=== PATIENT | male | born 1955 | race Caucasian/White ===

== ENCOUNTER 2017-03-23 23:27 | Emergency (ER) | payer BC ==
[~2017-03-23] VITALS: Ht 177.8 cm; Wt 134.6 kg
[~2017-03-23 23:27] MED LIST: GABA-113 PO; PRAV20TA PO
[2017-03-23 23:33] VITALS: Ht 177.8 cm; Wt 134.6 kg
--- NOTE | 2017-03-24 00:07 | EMERGENCY ROOM VISIT NOTE ---
History Report prepared by Mary: Pernell Pulido Under the Supervision of: Dr. Cindy Todd D.O. First contact with patient: 23:35 Chief Complaint: KIDNEY STONE Stated Complaint: RT SIDE LOWER BACK PAIN- HX KIDNEY STONES History of Present Illness The patient is a 61 year old male who presents to the Emergency Room with complaints of constant right flank pain that began 3 hours ago. The patient describes the pain as a constant "discomfort, not painful" pain down the back with recent movement to the front. Per patient, he has associated symptoms of vomiting, "hot flashes", and chills. He has not taken his temperature. He denies any change in bowel movement, change in urine, or hematuria. Patient denies pain in the legs and testicles. Pertinent past medical history includes history of kidney stones for 35 years, and state that his current symptoms feel like a kidney stone. Most recent kidney stone passed was small, and occurred several years ago. Patient has passed kidney stones from both kidneys. No family history of kidney stones. Symptoms are improved with increased fluids. Patient had recent blood work done at [facility], in addition to getting a shinGetui shot. Patient adds that he has a history of diabetes and has started exercising for the past 3 weeks to try to get off of Metformin. Source of History: patient Onset: 3 hours ago Position: other (right flank) Timing: constant Associated Symptoms: + chills, + vomiting Note: The patient denies any change in bowel movement, change in urine, or hematuria. He also complains of "hot flashes". Review of Systems See HPI for pertinent positives & negatives. A total of 10 systems reviewed and were otherwise negative. Past Medical & Surgical Medical Problems: (1) Diabetes (2) Kidney stones Family History No pertinent family history stated. Social History Smoking Status: Never Smoker Marital Status: Housing Status: lives with family Occupation Status: employed Current/Historical Medications Scheduled Ondasetron Odt (Zofran Odt), 4 MG SL Q8 Pravastatin (Pravachol ), 20 MG PO DAILY Tamsulosin Hcl (Flomax), 0.4 MG PO DAILY Travoprost (Travatan Z), 1 DROPS OPB HS Scheduled PRN Hydrocodon/Acetaminophen 5MG/300MG (Vicodin (5MG/300MG)), 1 TAB PO Q6H PRN for Pain Allergies Coded Allergies: Aspirin (Verified Adverse Reaction, Mild, UNKNOWN, 03/24/17) Physical Exam Vital Signs Date Time Temp Pulse Resp B/P (MAP) Pulse Ox O2 Delivery O2 Flow Rate FiO2 03/24/17 01:50 70 18 156/83 98 03/24/17 01:10 68 18 156/83 98 Room Air 03/23/17 23:33 36.9 67 18 157/94 96 Room Air Physical Exam GENERAL: alert, well appearing, obese, well nourished, no distress, non-toxic EYE EXAM: normal conjunctiva, PERRL and EOM's grossly intact OROPHARYNX: no exudate, no erythema, lips, buccal mucosa, and tongue normal and mucous membranes are moist NECK: supple, no nuchal rigidity, no adenopathy, non-tender LUNGS: Clear to auscultation. Normal chest wall mechanics HEART: no murmurs, S1 normal and S2 normal ABDOMEN: abdomen soft, non-tender, normo-active bowel sounds, no masses, no rebound or guarding. BACK: Back is symmetrical on inspection and there is no deformity, no midline tenderness, no CVA tenderness. SKIN: no rashes and no bruising UPPER EXTREMITIES: upper extremities are grossly normal. LOWER EXTREMITIES: No pitting edema. NEURO EXAM: Normal sensorium, cranial nerves II-XII grossly intact, normal speech, no gross weakness of arms, no gross weakness of legs. Medical Decision & Procedures ER Provider Diagnostic Interpretation: Radiology results have been interpreted by the radiologist and reviewed by me. US RENAL: Non-obstructing calculi within the right kidney. No hydronephrosis. Left kidney is unremarkable. No Hydronephrosis. Radiologist: Chi Brasher MD Laboratory Results 03/23/17 23:45 Red Blood Count 4.65, Mean Corpuscular Volume 93.1, Mean Corpuscular Hemoglobin 31.6, Mean Corpuscular Hemoglobin Concent 33.9, Mean Platelet Volume 12.2, Neutrophils (%) (Auto) 71.9, Lymphocytes (%) (Auto) 18.5, Monocytes (%) (Auto) 8.0, Eosinophils (%) (Auto) 1.1, Basophils (%) (Auto) 0.2, Neutrophils # (Auto) 7.58, Lymphocytes # (Auto) 1.95, Monocytes # (Auto) 0.84, Eosinophils # (Auto) 0.12, Basophils # (Auto) 0.02 03/23/17 23:45 Test 03/23/17 23:45 White Blood Count 10.54 K/uL (4.8-10.8) Red Blood Count 4.65 M/uL (4.7-6.1) Hemoglobin 14.7 g/dL (14.0-18.0) Hematocrit 43.3 % (42-52) Mean Corpuscular Volume 93.1 fL (80-100) Mean Corpuscular Hemoglobin 31.6 pg (25-34) Mean Corpuscular Hemoglobin Concent 33.9 g/dl (32-36) Platelet Count 167 K/uL (130-400) Mean Platelet Volume 12.2 fL (7.4-10.4) Neutrophils (%) (Auto) 71.9 % Lymphocytes (%) (Auto) 18.5 % Monocytes (%) (Auto) 8.0 % Eosinophils (%) (Auto) 1.1 % Basophils (%) (Auto) 0.2 % Neutrophils # (Auto) 7.58 K/uL (1.4-6.5) Lymphocytes # (Auto) 1.95 K/uL (1.2-3.4) Monocytes # (Auto) 0.84 K/uL (0.11-0.59) Eosinophils # (Auto) 0.12 K/uL (0-0.5) Basophils # (Auto) 0.02 K/uL (0-0.2) RDW Standard Deviation 46.6 fL (36.4-46.3) RDW Coefficient of Variation 13.9 % (11.5-14.5) Immature Granulocyte % (Auto) 0.3 % Immature Granulocyte # (Auto) 0.03 K/uL (0.00-0.02) Urine Color YELLOW Urine Appearance CLEAR (CLEAR) Urine pH 5.0 (4.5-7.5) Urine Specific [place] 1.029 (1.000-1.030) Urine Protein NEG (NEG) Urine Glucose (UA) NEG (NEG) Urine Ketones 1+ (NEG) Urine Occult Blood 3+ (NEG) Urine Nitrite NEG (NEG) Urine Bilirubin NEG (NEG) Urine Urobilinogen NEG (NEG) Urine Leukocyte Esterase NEG (NEG) Urine WBC (Auto) 1-5 /hpf (0-5) Urine RBC (Auto) 5-10 /hpf (0-4) Urine Hyaline Casts (Auto) 1-5 /lpf (0-5) Urine Epithelial Cells (Auto) 5-10 /lpf (0-5) Urine Bacteria (Auto) NEG (NEG) Urine Crystals CALCIUM OXALATE (NONE Anion Gap 9.0 mmol/L (3-11) Est Creatinine Clear Calc Drug Dose 90.4 ml/min Estimated GFR () 75.7 Estimated GFR (Non- 65.3 BUN/Creatinine Ratio 12.8 (10-20) Calcium Level 9.3 mg/dl (8.5-10.1) Total Bilirubin 0.8 mg/dl (0.2-1) Aspartate Amino Transf (AST/SGOT) 40 U/L (15-37) Alanine Aminotransferase (ALT/SGPT) 55 U/L (12-78) Alkaline Phosphatase 55 U/L (45-117) Total Protein 7.4 gm/dl (6.4-8.2) Albumin 3.8 gm/dl (3.4-5.0) Globulin 3.6 gm/dl (2.5-4.0) Albumin/Globulin Ratio 1.1 (0.9-2) Laboratory results per my review. Medications Administered Medications (Trade) Dose Ordered Sig/Paulette Route Start Time Stop Time Status Last Admin Dose Admin Tamsulosin HCl (Flomax Cap) 0.4 mg NOW ONCE PO 03/24/17 00:15 03/24/17 00:16 DC 03/24/17 00:21 0.4 MG Ketorolac Tromethamine (Toradol Inj) 30 mg NOW STAT IV 03/24/17 00:11 03/24/17 00:13 DC 03/24/17 00:20 30 MG Sodium Chloride 1,000 ml @ 999 mls/hr Q1H1M STAT IV 03/24/17 00:11 03/24/17 01:11 DC 03/24/17 00:22 999 MLS/HR Ondansetron HCl (Zofran Inj) 4 mg NOW STAT IV 03/24/17 00:12 03/24/17 00:13 DC 03/24/17 00:20 4 MG Acetaminophen/ Hydrocodone Bitart (Universal 5/325 Tab) 1 tab NOW STAT PO 03/24/17 01:33 03/24/17 01:34 DC 03/24/17 01:45 1 TAB ED Course 2340: The patient was evaluated in room A3. A complete history and physical exam was performed. 0011: Sodium Chloride 1000 ml @ 999 mls/hr IV, Toradol 30mg IV 0012: Zofran Inj 4mg IV 0015: Flomax Cap 0.4mg PO 0119 Upon reevaluation, the patient is feeling better. I discussed the findings and the treatment plan with the patient. He verbalizes agreement and understanding. He was discharged home. 0133: Universal 5/325 Tab PO Medical Decision Differential diagnosis: Etiologies such as renal colic, appendicitis, diverticulitis, mesenteric ischemia, aortic pathology, infections, inflammatory bowel disease, PUD, biliary pathology, UTI, as well as others were entertained. Pt well appearing here, VS stable. Hx of prior stones and similar sx tonight. Renal function normal, no leukocytosis or fever, no evidence of UTI. Pain improved and no recurrent vomiting. Mild hyperglycemia noted. Discussed with pt hydration, meds, f/u with urology, sx to watch/return for, he verbalized understanding and was agreeable with plan. Doubt bacteremia/sepsis, doubt concurrent GI pathology, doubt appy, sbo, perf, colitis. Doubt vascular pathology. Pt comfortable going home and felt improved at [place]. Medication Reconcilliation Current Medication List: was personally reviewed by me Blood Pressure Screening Patient's blood pressure: Elevated blood pressure Blood pressure disposition: Elevated BP felt to be situational Impression Primary Impression: Right flank pain Additional Impressions: Renal colic Hematuria Scribe Attestation The scribe's documentation has been prepared under my direction and personally reviewed by me in its entirety. I confirm that the note above accurately reflects all work, treatment, procedures, and medical decision making performed by me. Departure Information Dispostion Home / Self-Care Prescriptions Tamsulosin Hcl (FLOMAX) 0.4 Mg Cap 0.4 MG PO DAILY, #10 CAP Prov: Cindy Todd, DO 03/24/17 Ondasetron Odt (ZOFRAN ODT) 4 Mg Tab 4 MG SL Q8 for Nausea, #20 TAB Prov: Cindy Todd, DO 03/24/17 Hydrocodon/Acetaminophen 5MG/300MG (VICODIN (5MG/300MG)) 1 Tab Tab 1 TAB PO Q6H Y for Pain, #14 TAB Prov: Perez Cindy S., DO 03/24/17 Referrals Uriel Colin M.D. (PCP) Forms HOME CARE DOCUMENTATION FORM, IMPORTANT VISIT INFORMATION Patient Instructions Kidney Stones - [facility], My [facility] Additional Instructions Please drink plenty of water. Please take the Flomax daily until he passed a kidney stone. You may use the pain and nausea medications as needed. Please: Follow up with your urologist as a precaution. If you develop worsening pain, have recurrent vomiting, develop fevers or chills, or unable to urinate, have markedly elevated blood sugars, or you have any other new concerns, please return the emergency room. Problem Qualifiers Additional Impressions: Hematuria Hematuria type: unspecified type Qualified Codes: R31.9 - Hematuria, unspecified
[2017-03-24] MEDS ORDERED: SODIUM CHLORIDE 0.9% 1000ML 1,000 ML IV STA (00:11)
[2017-03-24] MEDS ORDERED: KETOROLAC TROMETHAMINE 30 MG/ML VIAL IV STA (00:11)
[2017-03-24] MEDS ORDERED: ONDANSETRON INJ 2 MG/ML 2 ML VIAL IV STA (00:12)
[2017-03-24] MEDS ORDERED: TAMSULOSIN HCL 0.4 MG CAP PO ONE (00:15)
[2017-03-24 00:24] LABS: BASO % 0.2 %; BASO ABS # 0.02 K/uL (0-0.2); COMPLETE YES; EOS % 1.1 %; HEMATOCRIT 43.3 % (42-52); IG% 0.3 %; LYMPH % 18.5 %; LYMPH ABS # 1.95 K/uL (1.2-3.4); MEAN CELL VOLUME 93.1 fL (80-100); MEAN CORPUSCULAR HEMOGLOBIN 31.6 pg (25-34); MEAN CORPUSCULAR HGB CONC 33.9 g/dl (32-36); MEAN PLATELET VOLUME 12.2 fL (7.4-10.4); NEUT % 71.9 %; PLATELET COUNT 167 K/uL (130-400); RED BLOOD COUNT 4.65 M/uL (4.7-6.1); WHITE BLOOD COUNT 10.54 K/uL (4.8-10.8)
[2017-03-24 00:27] LABS: URINE APPEARANCE CLEAR (CLEAR); URINE BILIRUBIN NEG (NEG); URINE COLOR YELLOW; URINE NITRITE NEG (NEG); URINE SPECIFIC GRAVITY 1.029 (1.000-1.030); UROBILINOGEN NEG (NEG); ZZUR CULT IF INDIC CLEAN CATCH NO
[2017-03-24 00:31] LABS: BUN/CREATININE RATIO 12.8 (10-20); CALCIUM 9.3 mg/dl (8.5-10.1); CREATININE 1.2 mg/dl (0.60-1.40); POTASSIUM 3.8 mmol/L (3.5-5.1)
[2017-03-24 00:32] LABS: MANUAL MICROSCOPIC REQUIRED? NO; REVIEW REQ? YES
[2017-03-24 00:34] LABS: ALB/GLOB RATIO 1.1 (0.9-2)
[2017-03-24] MEDS ORDERED: TRAV0.00 OPB (00:53)
[2017-03-24] MEDS ORDERED: PRAV20TA PO (00:53)
[2017-03-24] MEDS ORDERED: HYDROCODONE/ACETAMOPHEN 5/325MG TAB PO STA (01:33)
[2017-03-24] MEDS ORDERED: HYDR-3419 PO (01:35)
[2017-03-24] MEDS ORDERED: ONDA4TAB10 SL (01:35)
[2017-03-24] MEDS ORDERED: TAMS0.4C38 PO (01:35)
[2017-03-24] MEDS ORDERED: EMPTY 8 DRAM VIAL ONE (01:46)
[2017-03-24 01:50] VITALS: BP 156/83; PULSE 70; O2SAT 98
--- NOTE | 2017-03-24 06:57 | DIAGNOSTIC IMAGING REPORT ---
RENAL ULTRASOUND HISTORY: right flank pain, hx stone COMPARISON: Abdomen and pelvis CT 02/16/2011. FINDINGS: Right kidney: 11.8 cm. No hydronephrosis. Normal corticomedullary differentiation and cortical thickness. There is an 8 mm stone within the lower pole. Left kidney: 11.5 cm. No hydronephrosis. Normal corticomedullary differentiation and cortical thickness. Bladder: Not well distended. Mild anterior bladder wall thickening, unchanged. This is likely due to the underdistention. No ureteral jets identified at this time. IMPRESSION: 1. No hydronephrosis. 2. Right-sided nephrolithiasis. Electronically signed by: Bo Rush M.D. 03/24/2017 6:55 AM Dictated Date/Time: 03/24/2017 6:54 AM
== END 2017-03-24 01:53 | disposition home or self-care (01) ==
LOC: C.EDB 23:29 → C.EDA 03-24 01:53
DX: N23 Unspecified renal colic (principal); E11.65 Type 2 diabetes mellitus with hyperglycemia; Z87.442 Personal history of urinary calculi